=== PATIENT | female | born 1960 | race Caucasian/White ===

== ENCOUNTER → 2020-10-03 | Outpatient (CLI) | payer BC | END | disposition home or self-care (01) | LOC: CFH 10:43 | PROVIDERS: ATTEND Nurse Practitioner Family | DX: Z12.31 Encounter for screening mammogram for malignant neoplasm of breast (principal) | CPT/HCPCS: 77067 ==

== ENCOUNTER → 2020-10-10 | Outpatient (CLI) | payer BC ==
[~2020-10-10] MED LIST: OMNIPAQUE 350 MG/ML, 100ML BOTTLE ONE
== END | disposition home or self-care (01) ==
LOC: CFH 09:50
PROVIDERS: ATTEND Registered Nurse
DX: K57.92 Diverticulitis of intestine, part unspecified, without perforation or abscess without bleeding (principal); M51.37 Other intervertebral disc degeneration, lumbosacral region; R10.9 Unspecified abdominal pain; R19.7 Diarrhea, unspecified; K59.00 Constipation, unspecified; Z68.32 Body mass index [BMI] 32.0-32.9, adult
CPT/HCPCS: 74177; 82565; Q9967

== ENCOUNTER 2021-01-05 14:06 | Outpatient (CLI) | payer BC ==
[2021-01-05] MEDS ORDERED: LIDOCAINE 1%, 10ML ONE (14:22)
== END 2021-01-05 23:59 | disposition home or self-care (01) ==
LOC: RAD 14:06
PROVIDERS: ATTEND Family Medicine
DX: E04.1 Nontoxic single thyroid nodule (principal)
CPT/HCPCS: 10005; 10006; 88172; 88173; J3490; 60100; 76942